=== PATIENT | female | born 1945 | race Caucasian/White ===

== ENCOUNTER → 2024-05-27 | Outpatient (CLI) | payer MEDICARE, SELFPAY ==
--- NOTE | 2024-05-27 13:00 | XR_ITS ---
Examination: Shoulder,right, 3 views Technique: Shoulder AP internal rotation, AP external rotation, Y view shoulder, 3 views Exam date and time :May 27, 2024 at 1618 hours INDICATIONS: Right shoulder pain this week. FINDINGS: Advanced narrowing glenohumeral joint with subarticular sclerosis Severe osteopenia No fracture IMPRESSION: Advanced arthritic change right glenohumeral joint
== END | disposition home or self-care (01) ==
PROVIDERS: PCP Internal Medicine; Referring Provider Nurse Practitioner Family; Visit Provider Nurse Practitioner Family
DX: M13.811 Other specified arthritis, right shoulder (principal)
CPT/HCPCS: 73030